=== PATIENT | male | born 1975 | race Caucasian/White ===

== ENCOUNTER 2016-07-17 08:42 | Day surgery (SDC) | payer OTHER ==
[~2016-07-17 08:42] MED LIST: Lactated Ringers 1,000 ML IV SCH; ceFAZolin 2 GM in Premix Bag 1 BAG IV ONE
[2016-07-17] MEDS ORDERED: Propofol 200 MG/20 ML SDV ONE ×2 (09:41→11:34)
[2016-07-17] MEDS ORDERED: Lidocaine 2% 5 ML SDV ONE (09:41)
[2016-07-17] MEDS ORDERED: Ondansetron 4 MG/2 ML SDV ONE (09:42)
[2016-07-17] MEDS ORDERED: Midazolam 1 MG/ML 2 ML SDV ONE (09:42)
[2016-07-17] MEDS ORDERED: Ketorolac 30 MG/ML SDV ONE (09:42)
[2016-07-17] MEDS ORDERED: fentaNYL 250 MCG/5 ML SDV ONE (09:42)
--- NOTE | 2016-07-17 10:05 | PCM.PREANE ---
Preanesthetic Assessment - Procedure Proposed Procedure: Left foot endoscopic plantat fasciotomy - Anesthesia/Transfusion/Family Hx Anesthesia History: Prior Anesthesia Without Reaction Family History of Anesthesia Reaction: No Transfusion History: No Prior Transfusion(s) Intubation History: Unknown - Review of Systems General: Other ( eczema and psoriasis) Pulmonary: No Symptoms Cardiovascular: No Symptoms Gastrointestinal: Other (GERD, Celiac disease, IBS) Other: Reports: None - Physical Assessment NPO Status Date: 07/16/16 NPO Status Time: 23:00 O2 Sat by Pulse Oximetry: 95 Respiratory Rate: 16 Vital Signs: Last Vital Signs Temp 98.1 F 07/17/16 08:51 Pulse 70 07/17/16 08:51 Resp 16 07/17/16 08:51 BP 122/73 07/17/16 08:51 Pulse Ox 95 07/17/16 08:51 Height: 5 ft 9 in Weight: 259 lb ASA Class: 2 Mental Status: Alert & Oriented x3 Airway Class: Mallampati = 1 Dentition: Reports: Normal Dentition Thyro-Mental Finger Breadths: 3 Mouth Opening Finger Breadths: 3 ROM/Head Extension: Full Lungs: Clear to auscultation, Normal respiratory effort Cardiovascular: Regular Rate, Regular Rhythm, No Murmurs - Allergies Allergies/Adverse Reactions: Allergies Allergy/AdvReac Type Severity Reaction Status Date / Time gluten Allergy Other Verified 06/02/15 08:37 - Blood Blood Available: No Product(s) Available: None - Anesthesia Plan Free Text/Narrative:: present for interview and exam. - Acknowledgements Anesthesia Type Planned: General Anesthesia (LMA) Pt an Appropriate Candidate for the Planned Anesthesia: Yes Alternatives and Risks of Anesthesia Discussed w Pt/Guardian: Yes Pt/Guardian Understands and Agrees with Anesthesia Plan: Yes PreAnesthesia Questionnaire HEENT History: Reports: None Cardiovascular History: Reports: Other (See Below) Other Cardiovascular History: had chest pain 4+ years ago, had testing done, no pathology found Respiratory History: Reports: None Gastrointestinal History: Reports: Celiac Disease, Chronic Constipation, GERD, Irritable Bowel Syndrome Other Gastrointestinal History: Celiac disease Genitourinary History: Reports: None Musculoskeletal History: Reports: Fracture Other Musculoskeletal History: hx of fx left elbow, has decreased movement in it Neurological History: Reports: None Psychiatric History: Reports: Bipolar Other Psychiatric History: does not take any meds Endocrine/Metabolic History: Reports: Obesity/BMI 30+ Hematologic History: Reports: None Immunologic History: Reports: None Oncologic (Cancer) History: Reports: None Dermatologic History: Reports: Eczema, Psoriasis - Past Surgical History Head Surgeries/Procedures: Reports: None HEENT Surgical History: Reports: None Cardiovascular Surgical History: Reports: None GI Surgical History: Reports: Colonoscopy, EGD, Hernia, Abdominal Male Surgical History: Reports: Vasectomy Endocrine Surgical History: Reports: None Neurological Surgical History: Reports: None Musculoskeletal Surgical History: Reports: None Oncologic Surgical History: Reports: None Dermatological Surgical History: Reports: None - SUBSTANCE USE Smoking Status *Q: Never Smoker Second Hand Smoke Exposure: No Days Per Week of Alcohol Use: 0 Recreational Drug Use History: No - HOME MEDS Home Medications: Home Meds . [No Known Home Meds] 07/14/16 [History] - CURRENT (IN HOUSE) MEDS Current Meds: Current Medications Lactated Ringer's (Ringers, Lactated) 1,000 mls @ 125 mls/hr IV ASDIRECTED KENNEY Last Admin: 07/17/16 09:05 Dose: 125 mls/hr Discontinued Medications Fentanyl (Sublimaze) Confirm Administered Dose 250 mcg .ROUTE .STK-MED ONE Stop: 07/17/16 09:43 Cefazolin Sodium/Dextrose 2 gm (/ Premix) 50 mls @ 100 mls/hr IV ONETIME ONE Stop: 07/16/16 21:42 Ketorolac Tromethamine (Toradol) Confirm Administered Dose 30 mg .ROUTE .STK- MED ONE Stop: 07/17/16 09:43 Lidocaine (Xylocaine-Mpf 2%) Confirm Administered Dose 10 ml .ROUTE .STK-MED ONE Stop: 07/17/16 09:42 Midazolam HCl (Versed 1 Mg/Ml) Confirm Administered Dose 2 mg .ROUTE .STK-MED ONE Stop: 07/17/16 09:43 Ondansetron HCl (Zofran) Confirm Administered Dose 4 mg .ROUTE .STK-MED ONE Stop: 07/17/16 09:43 Propofol (Diprivan 20 Ml) Confirm Administered Dose 400 mg .ROUTE .STK-MED ONE Stop: 07/17/16 09:42
[2016-07-17] MEDS ORDERED: Lidocaine 1% 50 ML MDV ONE (10:35)
[2016-07-17] MEDS ORDERED: Bupivacaine 0.5% 10 ML SDV ONE (10:35)
[2016-07-17] MEDS ORDERED: HYDROmorphone 2 MG/ML Syringe ONE (10:58)
[2016-07-17] MEDS ORDERED: fentaNYL 100 MCG/2 ML SDV IVPUSH PRN (11:16)
--- NOTE | 2016-07-17 12:27 | PCM.OPNOTE ---
- General Post-Op/Procedure Note Date of Surgery/Procedure: 07/17/16 Operative Procedure(s): endoscopic plantar fasciotomy left foot Findings: consistent with diagnosis Pre Op Diagnosis: plantar fasciitis left foot Anesthesia Technique: General LMA Primary Surgeon: Kareem Raman Anesthesia Provider: Joshua Clements Pathology: none EBL in mLs: 3 Condition: Good Free Text/Narrative:: 4-0 prolene
--- NOTE | 2016-07-17 12:59 | PCM.POSTAN ---
POST ANESTHESIA ASSESSMENT - MENTAL STATUS Mental Status: alert (to Phase II in good condition, without complaint.), oriented - RESPIRATORY Respiratory Status: respiratory rate WNL, airway patent, O2 saturation stable - CARDIOVASCULAR CV Status: pulse rate WNL, blood pressure stable - GASTROINTESTINAL GI Status: no symptoms - POST OP HYDRATION Hydration Status: adequate & stable
[2016-07-17 13:36] VITALS: BP 115/65
--- NOTE | 2016-07-18 02:47 | OR ---
SURGEON: Kareem Raman DPM DATE OF PROCEDURE: 07/17/2016 IDENTIFICATION: The patient is a 41-year-old male. PREOPERATIVE DIAGNOSIS: Plantar fasciitis, left foot. OPERATIVE PROCEDURE: Endoscopic plantar fasciotomy, left foot. PATHOLOGY: None. ANESTHESIA: General. HEMOSTASIS: Pneumatic ankle tourniquet which was set at 250 mmHg on the left ankle after an Esmarch bandage exsanguination. ESTIMATED BLOOD LOSS: 3 mL. MATERIALS: 4-0 Prolene. INJECTABLES: 1 mL of dexamethasone 4 mg/mL and 10 mL of 0.5% Marcaine plain. FINDINGS: Consistent with diagnosis. COMPLICATIONS: None seen. CONDITION: The patient tolerated the procedure and anesthesia well with all vital signs stable and neurovascular status intact to all digits of the left foot. JUSTIFICATION FOR THE PROCEDURE: The patient has tried and failed conservative measures including stretching and steroid injection and prior use of custom-made orthotics from another provider. Nothing has satisfactory alleviated his pain due to his plantar fasciitis of the left foot. The patient elected for surgical treatment and consented for endoscopic plantar fasciotomy of the left foot. No guarantees given or implied. PROCEDURE IN DETAIL: Endoscopic plantar fasciotomy, left foot. Following inflation of the tourniquet, attention was directed to the medial aspect of the left heel and using the site that was marked after prior palpation of the medial calcaneal tubercle, a stab incision was made with a 15 blade approximately 3 mm distal to the medial calcaneal tubercle and 17 mm superior to the plantar skin line of the foot. The incision was deepened using blunt dissection using a small curved mosquito hemostat and this facilitated the insertion of the plantar fascia elevator which was then utilized to palpate the plantar fascia superiorly and also the medial edge of the plantar fascia and then to separate the fascial planes with the plantar fascia superior to the elevator. The elevator was advanced from medial to lateral until the skin was tented on the lateral side and then it was withdrawn and an obturator was inserted following the same path as the plantar fascia elevator had taken. The skin was tented by the obturator from inside-out and stab incision was made on the lateral side at the location of the obturator. The obturator was then withdrawn. A cannula which was slotted was placed over the obturator and then the obturator and cannula were together placed through medial incision site across the plantar aspect of the foot exiting the lateral incision site through the stab incision that had just been made. The slotted cannula was rotated so that it was pacing in a superior direction which placed it on the inferior side of the plantar fascia band. Cotton tip applicators were passed from medial to lateral to clear any debris that had entered the cannula and then a 4 mm 30 degree scope was inserted from the medial side of the cannula and the bands of the plantar fascial were visualized. A hook knife was inserted with the hook facing inferiorly into the cannula from the lateral side and advanced medially until it was visualized on the monitor, able to hook the medial edge of the plantar fascia. The hook knife was then rotated so that it would hook the underside of plantar fascia and was pulled several times from medial to lateral stopping at the designated marker within the slotted cannula to cut the medial 1/3rd of the plantar fascia band. The hook knife was then rotated down again to protect inadvertent resection and removed from the cannula. [place] knife was then inserted also facing inferiorly and then rotated superiorly once it was in position on the medial aspect and further cutting of the plantar fascia was achieved in this way again stopping at the designated marker to limit the resection to approximately 1/3rd of the fascial band. After this was removed, the hook knife was used once again in a similar fashion to ensure that the desired portion of the plantar fascia had been fully cut. Care was taken not to exceed the designated marker on the slotted cannula. The cannula was held in place and in a proper position during the procedure. The underlying muscle belly was noted to protrude through the site when the fibers were released off the plantar fascia. The instruments were then removed including the cannula obturator combination and both the medial and lateral sides were flushed with normal sterile saline and dabbed dry. Following this, 1 mL of dexamethasone 4 mg/mL strain was injected through the medial incision. Following this, 10 mL of 0.5% Marcaine plain was injected with half being injected through the medial incision and half through the lateral incision. At that time, the skin on both sides was reapproximated using 4-0 Prolene suture. Both sites were then covered with Betadine-soaked Xeroform gauze followed by sterile compressive dressing consisting of 4 x 4 gauze, Kerlix roll, and secured with an Sukumar bandage. The pneumatic ankle tourniquet was then deflated and a prompt hyperemic response was noted to all digits of the left foot. The patient tolerated the procedure and anesthesia well, was transferred to the recovery room for a period of monitoring. The patient was discharged home with written and oral postoperative instructions including partial weightbearing in a postoperative shoe which has been affixed in the recovery room and prescription for Goree for pain management. The patient is to contact me with any concerns at any time and has my cellphone number and the patient is to call the office to schedule a followup appointment in approximately 12-14 days. MARTA SOL /[id number] JUSTIN
--- NOTE | 2016-07-18 06:09 | PN ---
DATE OF SURGERY: July 17, 2016. TIME: Approximately 10:45 a.m. PREOPERATIVE DIAGNOSIS: Plantar fasciitis, left foot. PLANNED PROCEDURE: Endoscopic plantar fasciotomy, left foot. Consent is signed and in the chart. ANESTHESIA: General. The patient confirms n.p.o. since midnight. History and physical completed by Dr. Concepcion with no contraindications noted to surgery. PAST MEDICAL HISTORY: ALLERGIES: No known allergies. MEDICATIONS: No current medications, although he does take vitamins supplements. No current illnesses. LABORATORY DATA: Urinalysis is unremarkable. Hemoglobin 16.0, hematocrit 45.6, red blood cells 5.26, white blood cell count is 7.70, INR 1.04, PTT 28.0. Sodium 140, potassium 4.3, chloride 106, CO2 is 25, BUN is 16, creatinine 1.0, and calcium 9.4, glucose 89. Chest x-ray showed no acute cardiopulmonary process and EKG shows normal sinus rhythm. The patient presents for endoscopic plantar fasciotomy surgery today. No guarantees given or implied. MARTA SOL /[id number]
== END 2016-07-17 13:19 | disposition home or self-care (01) ==
LOC: MW.SDS 08:42
PROVIDERS: ATTEND Podiatrist Foot & Ankle Surgery
DX: M72.2 Plantar fascial fibromatosis (principal); K21.9 Gastro-esophageal reflux disease without esophagitis; K58.9 Irritable bowel syndrome, unspecified; K59.09 Other constipation; F31.9 Bipolar disorder, unspecified; L40.9 Psoriasis, unspecified; E66.9 Obesity, unspecified; Z98.52 Vasectomy status; Z98.890 Other specified postprocedural states; Z82.49 Family history of ischemic heart disease and other diseases of the circulatory system; Z80.0 Family history of malignant neoplasm of digestive organs; Z83.49 Family history of other endocrine, nutritional and metabolic diseases; Z88.8 Allergy status to other drugs, medicaments and biological substances; Z68.30 Body mass index [BMI] 30.0-30.9, adult; Z79.899 Other long term (current) drug therapy
CPT/HCPCS: 29893; J1170; J1885; J2250; J2405; J3010; J7120; 01470; J2704

== ENCOUNTER 2020-10-19 14:50 | Emergency (ER) | payer OTHER ==
[2020-10-19] MEDS ORDERED: Diphtheria,Pertussis(Acell),Tetanus Vaccine 0.5 ML Syringe IM ONE (15:02)
[2020-10-19] MEDS ORDERED: Lidocaine 1% 10 ML MDV INJECT ONE (15:02)
[2020-10-19] MEDS ORDERED: Mupirocin Oint 22 GM Tube TOP ONE (16:18)
--- NOTE | 2020-10-19 16:24 | EDM.PDOC ---
ED HPI GENERAL MEDICAL PROBLEM - General Chief Complaint: Laceration Stated Complaint: FELL OFF LADDER SPLIT CHIN OPEN Time Seen by Provider: 10/19/20 14:55 Source of Information: Reports: Patient History Limitations: Reports: No Limitations - History of Present Illness INITIAL COMMENTS - FREE TEXT/NARRATIVE: HISTORY AND PHYSICAL: History of present illness: The patient is a 45-year-old male who presented to the emergency department with a chin laceration after missing the wrong on his ladder and striking his chin on the edge of the ladder rails. The patient denies any LOC. The patient states that he did not hit his head anywhere else but his chin. The patient's stated that it was witnessed and the patient did not have any LOC. The patient did not do anything for the laceration but came straight to the emergency department. The patient did get his right thumb caught between the rails of the ladder causing blood entrapment beneath the nail. The patient states the nail is throbbing. Patient denies any fever, chills, headache, change in vision, syncope or near syncope. Denies any chest pain, back pain, shortness of breath or cough. Denies any abdominal pain, nausea, vomiting, diarrhea, constipation or dysuria. Has not noted any blood in urine or stool. Patient has been eating and drinking appropriately. Review of systems: As per history of present illness and below otherwise all systems reviewed and negative. Past medical history: As per history of present illness and as reviewed below otherwise noncontributory. Surgical history: As per history of present illness and as reviewed below otherwise noncontributory. Social history: See social history for further information Family history: As per history of present illness and as reviewed below otherwise noncontributory. Physical exam: General: Well developed and well nourished. Alert and orientated x 3. Nontoxic in appearance and in no acute distress. Vital signs are stable and have been reviewed by me. Nursing notes were reviewed. HEENT: Atraumatic, normocephalic, pupils equal and reactive bilaterally, negative for conjunctival pallor or scleral icterus, mucous membranes moist, TMs normal bilaterally, throat clear, neck supple, nontender, trachea midline. No drooling or trismus noted. No meningeal signs. No hot potato voice noted. Lungs: Clear to auscultation bilaterally. No wheezes, rales, or rhonchi. Chest nontender. Normal work of breathing, no accessory muscles used. Heart: S1S2, regular rate and rhythm without overt murmur, gallops, or rubs. No JVD. No peripheral edema Abdomen: Soft, nondistended, nontender. Normoactive bowel sounds. Negative for masses or costovertebral tenderness. Skin: 10 cm linear laceration to chin. Minimal bleeding. Sensation intact. Warm & dry. No lesions or rashes noted. Hematologic: No petechiae or purpra. Mucosa appropriate color and normal nail bed color and refill. Extremities: Right first digit with subungual hematoma 40%. Moves all extremities per self without difficulty or deficits, negative for cords or calf pain. Neurovascular unremarkable. Neuro: Awake, alert, oriented. Cranial nerves II through XII unremarkable. Cerebellum unremarkable. Motor and sensory unremarkable throughout. Exam nonfocal. Psychiatric: Mood and affect are appropriate. Normal thought process. Answering questions appropriately. Notes: *This patient was seen and evaluated during the 2019 SARS-CoV-2 novel coronavirus pandemic period. Community viral transmission is ongoing at time of this encounter and the emergency department is operating under pandemic response procedures. As stated above the patient is a 45-year-old male presents to the emergency with chin laceration after striking his chin on a rail off a ladder. The patient is unsure of his tetanus vaccination status so I have ordered a tetanus. See laceration procedure. The patient tolerated well. The patient was given Toradol 60 mg IM for pain control. I have ordered a thumb x-ray to rule out fracture. The patient's first digit subungual hematoma was treated with nail trephination. The patient was advised of the painless nature of the procedure and the smell of burning nail and verbalized understanding. The patient right first digit was chlorhexidine and allowed to completely dry. Hand-held cautery was used to burn nail until blood was present. Patient had immediate relief and tolerated the procedure well. A thumb dressing was applied with instructions at the blood could see for over 24 hours. Bacitracin ointment was applied to the patient's chin. Patient was instructed to have the sutures removed in 7 to 10 days. The patient's thumb x-ray IMPRESSION: Questionable nondisplaced fracture off the tip of the tuft of the left thumb is identified. The joint spaces are preserved. I have ordered Keflex 500 mg every 8 hours by mouth for 7 days. Patient was leaving the emergency department to go to an emergent dentist appointment for possible chipped tooth when I found out the x-ray results. I have verbally told the patient of the results and of the K flex transmitted to the pharmacy. The patient and his verbalized understanding. I have talked with the patient about today's findings, in addition to providing specific details for plan of care. Reassessment at the time of disposition demonstrates that the patient is in no acute distress. The patient is stable for discharge, counseling was provided and we discussed in great detail signs and symptoms that would prompt them to return to the Emergency Department. Medication, follow up and supportive care measures were reviewed and discussed. Voices understanding and is agreeable to plan of care. Denies any further questions or concerns at this time. Diagnostics: Thumb x-ray Therapeutics: Lidocaine 1%, Toradol 60 mg IM Prescription: Keflex 500 mg by mouth every 8 hours for 7 days Impression: Duration, subungual hematoma, tuft fracture right thumb Plan: 1. You were evaluated today on an emergent basis. Your chin laceration was evaluated and treated with 10 sutures. Your right thumb was relieved of the pressure with a cautery pen. If you have increased pain or redness please return to the emergency department 2. You can alternate Tylenol and ibuprofen as needed for pain and fever management. 3. We encourage you to follow up with your primary care provider and/or recommended specialist in the next few days for re-evaluation and further care/management. 4. If your symptoms should worsen, new symptoms develop or any of the signs and symptoms we discussed should arise please return to the emergency room or call 911 (if needed). 5. Keep the area clean and dry. Continue to monitor for signs of infection. Sutures to be removed in 7-10 days. Definitive disposition and diagnosis as appropriate pending reevaluation and review of above. - Related Data Allergies Allergy/AdvReac Type Severity Reaction Status Date / Time gluten Allergy Other Verified 10/19/20 14:58 Home Meds: Home Meds cephALEXin [Keflex] 500 mg PO Q8H 7 Days #21 cap 10/19/20 [Rx] Past Medical History HEENT History: Reports: None Cardiovascular History: Reports: Other (See Below) Other Cardiovascular History: had chest pain 4+ years ago, had testing done, no pathology found Respiratory History: Reports: None Gastrointestinal History: Reports: Celiac Disease, Chronic Constipation, GERD, Irritable Bowel Syndrome Other Gastrointestinal History: Celiac disease Genitourinary History: Reports: None Musculoskeletal History: Reports: Fracture Other Musculoskeletal History: hx of fx left elbow, has decreased movement in it Neurological History: Reports: None Psychiatric History: Reports: Bipolar Other Psychiatric History: does not take any meds Endocrine/Metabolic History: Reports: Obesity/BMI 30+, Other (See Below) Other Endocrine/Metabolic History: celiac disease Hematologic History: Reports: None Immunologic History: Reports: None Oncologic (Cancer) History: Reports: None Dermatologic History: Reports: Eczema, Psoriasis - Infectious Disease History Infectious Disease History: Reports: Chicken Pox - Past Surgical History Head Surgeries/Procedures: Reports: None HEENT Surgical History: Reports: None Cardiovascular Surgical History: Reports: None GI Surgical History: Reports: Colonoscopy, EGD, Hernia, Abdominal Male Surgical History: Reports: Vasectomy Endocrine Surgical History: Reports: None Neurological Surgical History: Reports: None Musculoskeletal Surgical History: Reports: None Oncologic Surgical History: Reports: None Dermatological Surgical History: Reports: None Social & Family History - Family History Family Medical History: No Pertinent Family History Respiratory: Reports: Other (See Below) Other Respiratory Family Hisory: pneumonia family - Tobacco Use Tobacco Use Status *Q: Never Tobacco User - Caffeine Use Caffeine Use: Reports: Energy Drinks - Recreational Drug Use Recreational Drug Use: No ED ROS GENERAL - Review of Systems Review Of Systems: Comprehensive ROS is negative, except as noted in HPI. ED EXAM, SKIN/RASH Exam: See Below (See dictation) Course - Vital Signs Last Recorded V/S: Last Vital Signs Temp 97.5 F 10/19/20 16:51 Pulse 97 10/19/20 16:51 Resp 18 10/19/20 16:51 BP 122/85 10/19/20 16:51 Pulse Ox 98 10/19/20 16:51 - Orders/Labs/Meds Meds: Medications Discontinued Medications Generic Name Dose Route Start Last Admin Trade Name Freq PRN Reason Stop Dose Admin Bacitracin 1 dose 10/19/20 16:33 10/19/20 16:35 Bacitracin Oint 1 Gm U/D Packet TOP 10/19/20 16:34 1 dose ONETIME ONE Administration Diphtheria/Tetanus/Acell Pertussis 0.5 ml 10/19/20 15:02 10/19/20 15:08 Diphtheria,Pertussis(Acell),Tetanus Vaccine 0.5 Ml Syringe IM 10/19/20 15:03 0.5 ml .ONCE ONE Administration Ketorolac Tromethamine 60 mg 10/19/20 16:25 10/19/20 16:35 Ketorolac 60 Mg/2 Ml Sdv IM 10/19/20 16:26 60 mg ONETIME ONE Administration Lidocaine HCl 10 ml 10/19/20 15:02 10/19/20 15:46 Lidocaine 1% 10 Ml Mdv INJECT 10/19/20 15:03 Not Given ONETIME ONE Lidocaine HCl 10 ml 10/19/20 15:25 10/19/20 15:46 Lidocaine 1% 5 Ml Sdv INJECT 10/19/20 15:26 10 ml ONETIME ONE Administration Mupirocin 1 gm 10/19/20 16:18 10/19/20 16:36 Mupirocin Oint 22 Gm Tube TOP 10/19/20 16:19 Not Given ONETIME ONE Departure - Departure Time of Disposition: 16:49 Disposition: Home, Self-Care 01 Condition: Good Clinical Impression: Laceration, Open fracture of tuft of distal phalanx of finger Subungual hematoma of right thumb Qualifiers: Encounter type: initial encounter Qualified Code(s): S60.111A - Contusion of right thumb with damage to nail, initial encounter - Discharge Information *PRESCRIPTION DRUG MONITORING PROGRAM REVIEWED*: Not Applicable *COPY OF PRESCRIPTION DRUG MONITORING REPORT IN PATIENT DAVE: Not Applicable Prescriptions: cephALEXin [Keflex] 500 mg PO Q8H 7 Days #21 cap Instructions: Laceration Care, Adult Referrals: PCP,None [Primary Care Provider] - Forms: ED Department Discharge Additional Instructions: The following information is given to patients seen in the emergency department who are being discharged to home. This information is to outline your options for follow-up care. We provide all patients seen in our emergency department with a follow-up referral. The need for follow-up, as well as the timing and circumstances, are variable depending upon the specifics of your emergency department visit. If you don't have a primary care physician on staff, we will provide you with a referral. We always advise you to contact your personal physician following an emergency department visit to inform them of the circumstance of the visit and for follow-up with them and/or the need for any referrals to a consulting specialist. The emergency department will also refer you to a specialist when appropriate. This referral assures that you have the opportunity for follow-up care with a specialist. All of these measure are taken in an effort to provide you with optimal care, which includes your follow-up. Under all circumstances we always encourage you to contact your private physician who remains a resource for coordinating your care. When calling for follow-up care, please make the office aware that this follow-up is from your recent emergency room visit. If for any reason you are refused follow-up, please contact the [facility] Emergency Department at and asked to speak to the emergency department charge nurse. [facility] [address] [place] [id number] [address] Plan: 1. You were evaluated today on an emergent basis. Your chin laceration was evaluated and treated with 10 sutures. Your right thumb was relieved of the pressure with a cautery pen. If you have increased pain or redness please return to the emergency department 2. You can alternate Tylenol and ibuprofen as needed for pain and fever management. 3. We encourage you to follow up with your primary care provider and/or recommended specialist in the next few days for re-evaluation and further care/management. 4. If your symptoms should worsen, new symptoms develop or any of the signs and symptoms we discussed should arise please return to the emergency room or call [phone] (if needed). 5. Keep the area clean and dry. Continue to monitor for signs of infection. Sutures to be removed in 7-10 days. Sepsis Event Note (ED) - Evaluation Sepsis Screening Result: No Definite Risk
[2020-10-19] MEDS ORDERED: Ketorolac 60 MG/2 ML SDV IM ONE (16:25)
[2020-10-19] MEDS ORDERED: Bacitracin Oint 1 GM U/D Packet TOP ONE (16:33)
--- NOTE | 2020-10-19 16:48 | CR ---
INDICATION: Left thumb pain and injury. TECHNIQUE: Three view. FINDINGS: There is a questionable nondisplaced fracture of the tip of the tuft of the left thumb. The joint spaces are preserved. IMPRESSION: Questionable nondisplaced fracture off the tip of the tuft of the left thumb is identified. The joint spaces are preserved. Dictated by Fransisco Bowman MD @ 10/19/2020 4:47:36 PM (Electronically Signed)
[2020-10-19 16:52] VITALS: BP 122/85; PULSE 97
== END 2020-10-19 16:55 | disposition home or self-care (01) ==
LOC: MW.ED 14:50
DX: S62.521B Displaced fracture of distal phalanx of right thumb, initial encounter for open fracture (principal); S01.81XA Laceration without foreign body of other part of head, initial encounter; E66.9 Obesity, unspecified; Z91.018 Allergy to other foods; Z68.30 Body mass index [BMI] 30.0-30.9, adult; Z23 Encounter for immunization; W11.XXXA Fall on and from ladder, initial encounter
CPT/HCPCS: 11740; 12015; 73140; 90471; 90715; 96372; 99283; J1885

== ENCOUNTER 2020-12-18 10:48 | Inpatient (IN) | payer OTHER ==
--- NOTE | 2020-12-18 11:13 | EDM.PDOC ---
ED HPI GENERAL MEDICAL PROBLEM - General Chief Complaint: Respiratory Problem Stated Complaint: COV POS/ FATIGUE Time Seen by Provider: 12/18/20 10:59 - History of Present Illness INITIAL COMMENTS - FREE TEXT/NARRATIVE: 45-year-old male presents complaining of fatigue and shortness of breath. Patient positive for Covid. Cough started about 6 days ago. Patient did test positive. Everyone in the house also sick. Patient without history of immunosuppression or diabetes or asthma or COPD or respiratory illnesses. No exacerbating or alleviating factors - Related Data Allergies Allergy/AdvReac Type Severity Reaction Status Date / Time gluten Allergy Other Verified 12/18/20 10:55 Home Meds: Home Meds . [No Known Home Meds] 12/18/20 [History] Past Medical History HEENT History: Reports: None Cardiovascular History: Reports: None Other Cardiovascular History: had chest pain 4+ years ago, had testing done, no pathology found Respiratory History: Reports: None Gastrointestinal History: Reports: Celiac Disease, Chronic Constipation, GERD, Irritable Bowel Syndrome Other Gastrointestinal History: Celiac disease Genitourinary History: Reports: None Musculoskeletal History: Reports: Fracture Other Musculoskeletal History: hx of fx left elbow, has decreased movement in it Neurological History: Reports: None Psychiatric History: Reports: Bipolar Other Psychiatric History: does not take any meds Endocrine/Metabolic History: Reports: Obesity/BMI 30+, Other (See Below) Other Endocrine/Metabolic History: celiac disease Hematologic History: Reports: None Immunologic History: Reports: None Oncologic (Cancer) History: Reports: None Dermatologic History: Reports: Eczema, Psoriasis - Infectious Disease History Infectious Disease History: Reports: Chicken Pox - Past Surgical History Head Surgeries/Procedures: Reports: None HEENT Surgical History: Reports: None Cardiovascular Surgical History: Reports: None GI Surgical History: Reports: Colonoscopy, EGD, Hernia, Abdominal Male Surgical History: Reports: Vasectomy Endocrine Surgical History: Reports: None Neurological Surgical History: Reports: None Musculoskeletal Surgical History: Reports: None Oncologic Surgical History: Reports: None Dermatological Surgical History: Reports: None Social & Family History - Family History Family Medical History: No Pertinent Family History Respiratory: Reports: Other (See Below) Other Respiratory Family Hisory: pneumonia family - Tobacco Use Tobacco Use Status *Q: Never Tobacco User - Caffeine Use Caffeine Use: Reports: Coffee, Energy Drinks - Recreational Drug Use Recreational Drug Use: No ED ROS GENERAL - Review of Systems Review Of Systems: Comprehensive ROS is negative, except as noted in HPI. Constitutional: Reports: Fever Respiratory: Reports: Shortness of Breath, Cough GI/Abdominal: Reports: Diarrhea Skin: Reports: No Symptoms ED EXAM, GENERAL - Physical Exam Exam: See Below Free Text/Narrative:: CONSTITUTIONAL: well appearing in no acute distress SKIN: Warm, dry, and intact without rash HENT: Normocephalic, atraumatic, PULMONARY: No tachypnea. Bilateral rales. No retractions CARDIOVASCULAR: regular rate, No murmur, rubs, or gallops GASTROINTESTINAL: soft, nondistended, nontender NEUROLOGIC: normal speech, sensorimotor function intact MUSCULOSKELETAL: no gross deformities, atraumatic PSYCHIATRIC: normal mood and affect #1 Interpretation Time: 11:11 EKG Interpretation Comments: EKG: NSR, nonspecific ST/T changes, Rate -82 Course - Vital Signs Text/Narrative:: Differential diagnosis: Bacterial pneumonia, Covid pneumonia, CHF, other viral illness, COPD, PE, other Patient presents with shortness of breath and weakness in the setting of Covid. Patient has interstitial infiltrates on chest x-ray consistent with viral pneumonia from Covid. Patient is ambulatory O2 sat 85% on room air at its lowest. Patient is weak and nurse had to even bring a chair to ensure that the patient did not fall. The remainder of the work-up is effectively unremarkable. Patient received oxygen steroids and remdesivir and will be admitted for continued treatment and management Last Recorded V/S: Last Vital Signs Temp 38.4 C H 12/18/20 10:55 Pulse 90 12/18/20 10:55 Resp 16 12/18/20 10:55 BP 115/68 12/18/20 10:55 Pulse Ox 89 L 12/18/20 10:55 - Orders/Labs/Meds Orders: Active Orders 24 hr Category Date Time Status Admission Status [Patient Status] [ADT] Stat ADT 12/18/20 13:07 Ordered Cardiac Monitoring [RC] . DIRECTED Care 12/18/20 13:07 Ordered Oxygen Therapy Adult [Oxygen Therapy, ED] [RC] Care 12/18/20 12:39 Active ASDIRECTED Pulse Oximetry [RC] ASDIRECTED Care 12/18/20 11:14 Active BILIRUBIN DIRECT [CHEM] DAILY Lab 12/19/20 12:45 Ordered BILIRUBIN DIRECT [CHEM] DAILY Lab 12/20/20 12:45 Ordered BILIRUBIN DIRECT [CHEM] DAILY Lab 12/21/20 12:45 Ordered BILIRUBIN DIRECT [CHEM] DAILY Lab 12/22/20 12:45 Ordered COMPREHENSIVE METABOLIC PN,CMP [CHEM] DAILY Lab 12/19/20 12:45 Ordered COMPREHENSIVE METABOLIC PN,CMP [CHEM] DAILY Lab 12/20/20 12:45 Ordered COMPREHENSIVE METABOLIC PN,CMP [CHEM] DAILY Lab 12/21/20 12:45 Ordered COMPREHENSIVE METABOLIC PN,CMP [CHEM] DAILY Lab 12/22/20 12:45 Ordered FERRITIN [CHEM] Stat Lab 12/18/20 12:17 Received Remdesivir 200 mg Med 12/18/20 13:00 Active Sodium Chloride 0.9% [Normal Saline] 250 ml IV ONETIME Medication Orders Remdesivir 200 mg/ Sodium (Chloride) 250 mls @ 250 mls/hr IV ONETIME ONE Stop: 12/18/20 13:59 Labs: Laboratory Tests 12/18/20 12/18/20 Range/Units 12:17 12:17 WBC 3.49 L (4.0-11.0) K/uL RBC 5.11 (4.50-5.90) M/uL Hgb 15.9 (13.0-17.0) g/dL Hct 45.2 (38.0-50.0) % MCV 88.5 (80.0-98.0) fL MCH 31.1 (27.0-32.0) pg MCHC 35.2 (31.0-37.0) g/dL RDW Std Deviation 43.4 (28.0-62.0) fl RDW Coeff of Lena 13 (11.0-15.0) % Plt Count 134 L (150-400) K/uL MPV 9.40 (7.40-12.00) fL Neut % (Auto) 72.8 (48.0-80.0) % Lymph % (Auto) 16.9 (16.0-40.0) % [place] % (Auto) 10.3 (0.0-15.0) % Eos % (Auto) 0.0 (0.0-7.0) % Baso % (Auto) 0.0 (0.0-1.5) % Neut # (Auto) 2.5 (1.4-5.7) K/uL Lymph # (Auto) 0.6 (0.6-2.4) K/uL [place] # (Auto) 0.4 (0.0-0.8) K/uL Eos # (Auto) 0.0 (0.0-0.7) K/uL Baso # (Auto) 0.0 (0.0-0.1) K/uL Nucleated RBC % 0.0 /100WBC Nucleated RBCs # 0 K/uL Sodium 134 L (136-148) mmol/L Potassium 4.4 (3.5-5.1) mmol/L Chloride 97 L (98-107) mmol/L Carbon Dioxide 30.6 (21.0-32.0) mmol/L BUN 15 (7.0-18.0) mg/dL Creatinine 1.2 (0.8-1.3) mg/dL Est Cr Clr Drug Dosing 78.56 mL/min Estimated GFR (MDRD) > 60.0 ml/min Glucose 111 H (74-106) mg/dL Calcium 8.3 L (8.5-10.1) mg/dL Total Bilirubin 0.9 (0.2-1.0) mg/dL AST 48 H (15-37) IU/L ALT 40 (14-63) IU/L Alkaline Phosphatase 58 (46-116) U/L C-Reactive Protein 3.40 H (0.00-0.90) mg/dL Total Protein 6.9 (6.4-8.2) g/dL Albumin 3.3 L (3.4-5.0) g/dL Globulin 3.6 (2.6-4.0) g/dL Albumin/Globulin Ratio 0.9 (0.9-1.6) Meds: Medications Generic Name Dose Route Start Last Admin Trade Name Freq PRN Reason Stop Dose Admin Remdesivir 200 mg/ Sodium 250 mls @ 250 mls/hr 12/18/20 13:00 Chloride IV 12/18/20 13:59 ONETIME ONE Discontinued Medications Generic Name Dose Route Start Last Admin Trade Name Freq PRN Reason Stop Dose Admin Acetaminophen 1,000 mg 12/18/20 11:17 12/18/20 12:03 Acetaminophen 325 Mg Tab PO 12/18/20 11:18 975 mg NOW ONE Administration Acetaminophen 975 mg 12/18/20 12:04 12/18/20 12:19 Acetaminophen 325 Mg Tab PO 12/18/20 12:05 Not Given NOW ONE Dexamethasone 6 mg 12/18/20 12:37 Dexamethasone 4 Mg/Ml Sdv IVPUSH 12/18/20 12:38 ONETIME ONE Departure - Departure Time of Disposition: 13:10 Disposition: Refer to Observation Condition: Good Clinical Impression: COVID, Hypoxia - Discharge Information Referrals: PCP,None [Primary Care Provider] - Forms: ED Department Discharge Sepsis Event Note (ED) - Evaluation Sepsis Screening Result: No Definite Risk - Focused Exam Vital Signs: Vital Signs Temp Pulse Resp BP Pulse Ox 12/18/20 10:55 38.4 C H 90 16 115/68 89 L - My Orders Last 24 Hours: My Active Orders 12/18/20 11:14 Pulse Oximetry [RC] ASDIRECTED 12/18/20 12:17 FERRITIN [CHEM] Stat 12/18/20 12:39 Oxygen Therapy Adult [Oxygen Therapy, ED] [RC] ASDIRECTED 12/18/20 13:00 Remdesivir 200 mg Sodium Chloride 0.9% [Normal Saline] 250 ml IV ONETIME 12/18/20 13:07 Admission Status [Patient Status] [ADT] Stat Cardiac Monitoring [RC] . DIRECTED 12/19/20 12:45 BILIRUBIN DIRECT [CHEM] DAILY COMPREHENSIVE METABOLIC PN,CMP [CHEM] DAILY 12/20/20 12:45 BILIRUBIN DIRECT [CHEM] DAILY COMPREHENSIVE METABOLIC PN,CMP [CHEM] DAILY 12/21/20 12:45 BILIRUBIN DIRECT [CHEM] DAILY COMPREHENSIVE METABOLIC PN,CMP [CHEM] DAILY 12/22/20 12:45 BILIRUBIN DIRECT [CHEM] DAILY COMPREHENSIVE METABOLIC PN,CMP [CHEM] DAILY - Assessment/Plan Last 24 Hours: My Active Orders 12/18/20 11:14 Pulse Oximetry [RC] ASDIRECTED 12/18/20 12:17 FERRITIN [CHEM] Stat 12/18/20 12:39 Oxygen Therapy Adult [Oxygen Therapy, ED] [RC] ASDIRECTED 12/18/20 13:00 Remdesivir 200 mg Sodium Chloride 0.9% [Normal Saline] 250 ml IV ONETIME 12/18/20 13:07 Admission Status [Patient Status] [ADT] Stat Cardiac Monitoring [RC] . DIRECTED 12/19/20 12:45 BILIRUBIN DIRECT [CHEM] DAILY COMPREHENSIVE METABOLIC PN,CMP [CHEM] DAILY 12/20/20 12:45 BILIRUBIN DIRECT [CHEM] DAILY COMPREHENSIVE METABOLIC PN,CMP [CHEM] DAILY 12/21/20 12:45 BILIRUBIN DIRECT [CHEM] DAILY COMPREHENSIVE METABOLIC PN,CMP [CHEM] DAILY 12/22/20 12:45 BILIRUBIN DIRECT [CHEM] DAILY COMPREHENSIVE METABOLIC PN,CMP [CHEM] DAILY
[2020-12-18] MEDS ORDERED: Acetaminophen 325 MG Tab PO ONE ×2 (11:17→12:04)
--- NOTE | 2020-12-18 11:55 | CR ---
Indication: Chest pain Comparison: None available. Technique: Single AP view chest Findings: There is hyperinflation and chronic interstitial change. There are airspace opacities in the bilateral hemithoraces likely representing multifocal infiltrates and/or pulmonary edema. The cardiomediastinal silhouette is within normal limits. The bony thorax is grossly intact. Impression: Extensive interstitial and airspace opacities throughout the bilateral hemithoraces likely representing multifocal infiltrates such as can be seen in meredith virus pneumonia. Recommend follow-up with clinical testing. Dictated by Ever Dye MD @ 12/18/2020 11:54:44 AM (Electronically Signed)
[2020-12-18] MEDS ORDERED: Dexamethasone 4 MG/ML SDV IVPUSH ONE (12:37)
[2020-12-18] MEDS ORDERED: REMDESIVIR 200 MG in Sodium Chloride 0.9% 250 ML IV ONE ×2 (12:37→13:00)
[2020-12-18 12:53] LABS: BLOOD UREA NITROGEN,BUN 15 mg/dL (7.0-18.0); CARBON DIOXIDE,CO2 30.6 mmol/L (21.0-32.0); CHLORIDE,CL 97 mmol/L (98-107); GLUCOSE RANDOM 111 mg/dL (74-106); POTASSIUM,K 4.4 mmol/L (3.5-5.1); SODIUM,NA 134 mmol/L (136-148)
[2020-12-18] MEDS ORDERED: Benzonatate 100 MG Cap PO PRN (17:00)
[2020-12-18] MEDS: Enoxaparin 40 MG/0.4 ML Syringe SUBCUT SCH (17:33)
--- NOTE | 2020-12-18 17:34 | PCM.HP.2 ---
H&P History of Present Illness - General Date of Service: 12/18/20 Admit Problem/Dx: Admission Diagnosis/Problem Admission Diagnosis/Problem Viral pneumonia - History of Present Illness Initial Comments - Free Text/Narative: 45 yo male who presents with one week of shortness of breath, lightheadedness, cough and fevers. He is positive for COVID. He is requring 2 L NC to keep sats above 90%. CXR reports bilateral infiltrates. - Related Data Allergies/Adverse Reactions: Allergies Allergy/AdvReac Type Severity Reaction Status Date / Time gluten Allergy Other Verified 12/18/20 14:54 Home Medications: Home Meds . [No Known Home Meds] 12/18/20 [History] Past Medical History HEENT History: Reports: None Cardiovascular History: Reports: None Other Cardiovascular History: had chest pain 4+ years ago, had testing done, no pathology found Respiratory History: Reports: None Gastrointestinal History: Reports: Celiac Disease, Chronic Constipation, GERD, Irritable Bowel Syndrome Other Gastrointestinal History: Celiac disease Genitourinary History: Reports: None Musculoskeletal History: Reports: Fracture Other Musculoskeletal History: hx of fx right. elbow, has decreased movement in it Neurological History: Reports: None Psychiatric History: Reports: Bipolar Other Psychiatric History: does not take any meds Endocrine/Metabolic History: Reports: Obesity/BMI 30+, Other (See Below) Other Endocrine/Metabolic History: celiac disease Hematologic History: Reports: None Immunologic History: Reports: None Oncologic (Cancer) History: Reports: None Dermatologic History: Reports: Eczema, Psoriasis - Infectious Disease History Infectious Disease History: Reports: Chicken Pox - Past Surgical History Head Surgeries/Procedures: Reports: None HEENT Surgical History: Reports: None Cardiovascular Surgical History: Reports: None GI Surgical History: Reports: Colonoscopy, EGD, Hernia, Abdominal Male Surgical History: Reports: Vasectomy Endocrine Surgical History: Reports: None Neurological Surgical History: Reports: None Musculoskeletal Surgical History: Reports: None Oncologic Surgical History: Reports: None Dermatological Surgical History: Reports: None Social & Family History - Family History Family Medical History: No Pertinent Family History Respiratory: Reports: Other (See Below) Other Respiratory Family Hisory: pneumonia family - Tobacco Use Tobacco Use Status *Q: Never Tobacco User Second Hand Smoke Exposure: No - Caffeine Use Caffeine Use: Reports: Coffee, Energy Drinks Caffeine Use Comment: occ - Recreational Drug Use Recreational Drug Use: No H&P Review of Systems - Review of Systems: Review Of Systems: Comprehensive ROS is negative, except as noted in HPI. Exam - Exam Exam: See Below - Vital Signs Vital Signs: Last Vital Signs Temp 36.7 C 12/18/20 15:00 Pulse 79 12/18/20 15:00 Resp 18 12/18/20 15:00 BP 119/59 L 12/18/20 15:00 Pulse Ox 91 L 12/18/20 15:00 Weight: 115.212 kg - Exam General: Alert, Oriented HEENT: Mucosa Moist & [place] Neck: Supple Lungs: Normal Respiratory Effort, Rhonchi Cardiovascular: Regular Rate, Regular Rhythm GI/Abdominal Exam: Normal Bowel Sounds, Soft, Non-Tender, No Distention Extremities: Non-Tender, No Pedal Edema Skin: Warm, Dry, Intact - Patient Data Lab Results Last 24 hrs: Laboratory Results - last 24 hr 12/18/20 12/18/20 12/18/20 Range/Units 12:17 12:17 12:17 WBC 3.49 L (4.0-11.0) K/uL RBC 5.11 (4.50-5.90) M/uL Hgb 15.9 (13.0-17.0) g/dL Hct 45.2 (38.0-50.0) % MCV 88.5 (80.0-98.0) fL MCH 31.1 (27.0-32.0) pg MCHC 35.2 (31.0-37.0) g/dL RDW Std Deviation 43.4 (28.0-62.0) fl RDW Coeff of Lena 13 (11.0-15.0) % Plt Count 134 L (150-400) K/uL MPV 9.40 (7.40-12.00) fL Neut % (Auto) 72.8 (48.0-80.0) % Lymph % (Auto) 16.9 (16.0-40.0) % [place] % (Auto) 10.3 (0.0-15.0) % Eos % (Auto) 0.0 (0.0-7.0) % Baso % (Auto) 0.0 (0.0-1.5) % Neut # (Auto) 2.5 (1.4-5.7) K/uL Lymph # (Auto) 0.6 (0.6-2.4) K/uL [place] # (Auto) 0.4 (0.0-0.8) K/uL Eos # (Auto) 0.0 (0.0-0.7) K/uL Baso # (Auto) 0.0 (0.0-0.1) K/uL Nucleated RBC % 0.0 /100WBC Nucleated RBCs # 0 K/uL Sodium 134 L (136-148) mmol/L Potassium 4.4 (3.5-5.1) mmol/L Chloride 97 L (98-107) mmol/L Carbon Dioxide 30.6 (21.0-32.0) mmol/L BUN 15 (7.0-18.0) mg/dL Creatinine 1.2 (0.8-1.3) mg/dL Est Cr Clr Drug Dosing 78.56 mL/min Estimated GFR (MDRD) > 60.0 ml/min Glucose 111 H (74-106) mg/dL Calcium 8.3 L (8.5-10.1) mg/dL Ferritin 1318 H (26-388) ng/mL Total Bilirubin 0.9 (0.2-1.0) mg/dL AST 48 H (15-37) IU/L ALT 40 (14-63) IU/L Alkaline Phosphatase 58 (46-116) U/L C-Reactive Protein 3.40 H (0.00-0.90) mg/dL Total Protein 6.9 (6.4-8.2) g/dL Albumin 3.3 L (3.4-5.0) g/dL Globulin 3.6 (2.6-4.0) g/dL Albumin/Globulin Ratio 0.9 (0.9-1.6) Result Diagrams: 12/18/20 12:17 12/18/20 12:17 Sepsis Event Note - Evaluation Sepsis Screening Result: No Definite Risk - Focused Exam Vital Signs: Vital Signs Temp Pulse Resp BP Pulse Ox Pulse Ox 12/18/20 15:00 36.7 C 79 18 119/59 L 91 L 12/18/20 12:39 93 L 12/18/20 10:55 38.4 C H 90 16 115/68 89 L - Problem List (1) COVID SNOMED Code(s): 780931688 ICD Code: U07.1 - COVID-19 Status: Acute Current Visit: Yes (2) Hypoxia SNOMED Code(s): 825063748 ICD Code: R09.02 - HYPOXEMIA Status: Acute Current Visit: Yes Problem List Initiated/Reviewed/Updated: Yes Orders Last 24hrs: Active Orders 24 hr Category Date Time Status Admission Status [Patient Status] [ADT] Stat ADT 12/18/20 13:07 Active Cardiac Monitoring [RC] . DIRECTED Care 12/18/20 13:07 Active Oxygen Therapy [RC] PRN Care 12/18/20 16:41 Active Pulse Oximetry [RC] ASDIRECTED Care 12/18/20 11:14 Active RT Post Treatment Assessment [RC] Click to Edit Care 12/18/20 16:41 Active RT Pre-Treatment Assessment [RC] Click to Edit Care 12/18/20 16:41 Active VTE/DVT Education [RC] PER UNIT ROUTINE Care 12/18/20 16:41 Active Vital Signs [RC] Q4H Care 12/18/20 16:41 Active Regular Diet [DIET] Diet 12/18/20 Breakfast Active CBC WITH AUTO DIFF [HEME] AM Lab 12/19/20 05:11 Ordered CBC WITH AUTO DIFF [HEME] AM Lab 12/20/20 05:11 Ordered CBC WITH AUTO DIFF [HEME] AM Lab 12/21/20 05:11 Ordered CBC WITH AUTO DIFF [HEME] AM Lab 12/22/20 05:11 Ordered CBC WITH AUTO DIFF [HEME] AM Lab 12/23/20 05:11 Ordered COMPREHENSIVE METABOLIC PN,CMP [CHEM] AM Lab 12/19/20 05:11 Ordered COMPREHENSIVE METABOLIC PN,CMP [CHEM] AM Lab 12/20/20 05:11 Ordered COMPREHENSIVE METABOLIC PN,CMP [CHEM] AM Lab 12/21/20 05:11 Ordered COMPREHENSIVE METABOLIC PN,CMP [CHEM] AM Lab 12/22/20 05:11 Ordered COMPREHENSIVE METABOLIC PN,CMP [CHEM] AM Lab 12/23/20 05:11 Ordered Albuterol/Ipratropium [Combivent Respimat] Med 12/18/20 18:00 Active 1 gm INH QID PRN Benzonatate [Tessalon Perles] Med 12/18/20 17:00 Active 100 mg PO Q6H PRN Enoxaparin [Lovenox] Med 12/18/20 17:00 Active 40 mg SUBCUT Q24H Remdesivir 100 mg Med 12/19/20 13:00 Active Sodium Chloride 0.9% [Normal Saline AdvBag] 100 ml IV Q24H dexAMETHasone Med 12/19/20 13:00 Active 6 mg PO Q24H Resuscitation Status Routine Resus Stat 12/18/20 16:41 Ordered Medication Orders Albuterol/Ipratropium (Albuterol/Ipratropium 4 Gm Inhalation [place]) 1 gm INH QID PRN PRN Reason: wheezing Benzonatate (Benzonatate 100 Mg Cap) 100 mg PO Q6H PRN PRN Reason: Cough Dexamethasone (Dexamethasone 4 Mg Tab) 6 mg PO Q24H [facility] Enoxaparin Sodium (Enoxaparin 40 Mg/0.4 Ml Syringe) 40 mg SUBCUT Q24H [facility] Remdesivir 100 mg/ Sodium (Chloride) 100 mls @ 100 mls/hr IV Q24H [facility] Stop: 12/22/20 13:59 Assessment/Plan Comment:: 45 yo male admitted with COVID pneumonia with hypoxia Hypoxia: on 1 L NC COVID: treating with dexamethasone and remdesivir lovenox for DVT prophylaxis
[2020-12-18] MEDS ORDERED: Albuterol/Ipratropium 4 GM Inhalation Spray INH PRN (18:00)
[2020-12-19 07:38] LABS: BLOOD UREA NITROGEN,BUN 19 mg/dL (7.0-18.0); CARBON DIOXIDE,CO2 28.7 mmol/L (21.0-32.0); CHLORIDE,CL 96 mmol/L (98-107); GLUCOSE RANDOM 109 mg/dL (74-106); POTASSIUM,K 3.8 mmol/L (3.5-5.1); SODIUM,NA 133 mmol/L (136-148)
--- NOTE | 2020-12-19 12:31 | PCM.PN ---
- General Info Date of Service: 12/19/20 - Review of Systems Systems Review Comment:: shortness of breath has improved, - Patient Data Vitals - Most Recent: Last Vital Signs Temp 38.2 C H 12/19/20 07:00 Pulse 88 12/19/20 07:00 Resp 28 H 12/19/20 07:00 BP 113/61 12/19/20 07:00 Pulse Ox 91 L 12/19/20 07:00 Weight - Most Recent: 115.212 kg I&O - Last 24 Hours: Intake & Output 12/18/20 12/19/20 12/19/20 22:59 06:59 14:59 Intake Total 950 Output Total 675 Balance 275 Lab Results Last 24 Hours: Laboratory Results - last 24 hr 12/18/20 12/18/20 12/19/20 Range/Units 12:17 12:17 06:10 WBC 5.57 (4.0-11.0) K/uL RBC 4.95 (4.50-5.90) M/uL Hgb 15.3 (13.0-17.0) g/dL Hct 43.4 (38.0-50.0) % MCV 87.7 (80.0-98.0) fL MCH 30.9 (27.0-32.0) pg MCHC 35.3 (31.0-37.0) g/dL RDW Std Deviation 42.3 (28.0-62.0) fl RDW Coeff of Lena 13 (11.0-15.0) % Plt Count 169 (150-400) K/uL MPV 9.60 (7.40-12.00) fL Neut % (Auto) 68.0 (48.0-80.0) % Lymph % (Auto) 19.2 (16.0-40.0) % [place] % (Auto) 12.6 (0.0-15.0) % Eos % (Auto) 0.0 (0.0-7.0) % Baso % (Auto) 0.2 (0.0-1.5) % Neut # (Auto) 3.8 (1.4-5.7) K/uL Lymph # (Auto) 1.1 (0.6-2.4) K/uL [place] # (Auto) 0.7 (0.0-0.8) K/uL Eos # (Auto) 0.0 (0.0-0.7) K/uL Baso # (Auto) 0.0 (0.0-0.1) K/uL Nucleated RBC % 0.0 /100WBC Nucleated RBCs # 0 K/uL Sodium 134 L (136-148) mmol/L Potassium 4.4 (3.5-5.1) mmol/L Chloride 97 L (98-107) mmol/L Carbon Dioxide 30.6 (21.0-32.0) mmol/L BUN 15 (7.0-18.0) mg/dL Creatinine 1.2 (0.8-1.3) mg/dL Est Cr Clr Drug Dosing 78.56 mL/min Estimated GFR (MDRD) > 60.0 ml/min Glucose 111 H (74-106) mg/dL Calcium 8.3 L (8.5-10.1) mg/dL Ferritin 1318 H (26-388) ng/mL Total Bilirubin 0.9 (0.2-1.0) mg/dL AST 48 H (15-37) IU/L ALT 40 (14-63) IU/L Alkaline Phosphatase 58 (46-116) U/L C-Reactive Protein 3.40 H (0.00-0.90) mg/dL Total Protein 6.9 (6.4-8.2) g/dL Albumin 3.3 L (3.4-5.0) g/dL Globulin 3.6 (2.6-4.0) g/dL Albumin/Globulin Ratio 0.9 (0.9-1.6) 12/19/20 Range/Units 06:10 WBC (4.0-11.0) K/uL RBC (4.50-5.90) M/uL Hgb (13.0-17.0) g/dL Hct (38.0-50.0) % MCV (80.0-98.0) fL MCH (27.0-32.0) pg MCHC (31.0-37.0) g/dL RDW Std Deviation (28.0-62.0) fl RDW Coeff of Lena (11.0-15.0) % Plt Count (150-400) K/uL MPV (7.40-12.00) fL Neut % (Auto) (48.0-80.0) % Lymph % (Auto) (16.0-40.0) % [place] % (Auto) (0.0-15.0) % Eos % (Auto) (0.0-7.0) % Baso % (Auto) (0.0-1.5) % Neut # (Auto) (1.4-5.7) K/uL Lymph # (Auto) (0.6-2.4) K/uL [place] # (Auto) (0.0-0.8) K/uL Eos # (Auto) (0.0-0.7) K/uL Baso # (Auto) (0.0-0.1) K/uL Nucleated RBC % /100WBC Nucleated RBCs # K/uL Sodium 133 L (136-148) mmol/L Potassium 3.8 (3.5-5.1) mmol/L Chloride 96 L (98-107) mmol/L Carbon Dioxide 28.7 (21.0-32.0) mmol/L BUN 19 H (7.0-18.0) mg/dL Creatinine 1.1 (0.8-1.3) mg/dL Est Cr Clr Drug Dosing 85.70 mL/min Estimated GFR (MDRD) > 60.0 ml/min Glucose 109 H (74-106) mg/dL Calcium 7.7 L (8.5-10.1) mg/dL Ferritin (26-388) ng/mL Total Bilirubin 0.8 (0.2-1.0) mg/dL AST 46 H (15-37) IU/L ALT 36 (14-63) IU/L Alkaline Phosphatase 56 (46-116) U/L C-Reactive Protein (0.00-0.90) mg/dL Total Protein 6.6 (6.4-8.2) g/dL Albumin 3.0 L (3.4-5.0) g/dL Globulin 3.6 (2.6-4.0) g/dL Albumin/Globulin Ratio 0.8 L (0.9-1.6) Med Orders - Current: Current Medications Albuterol/Ipratropium (Albuterol/Ipratropium 4 Gm Inhalation [place]) 1 gm INH QID PRN PRN Reason: wheezing Benzonatate (Benzonatate 100 Mg Cap) 100 mg PO Q6H PRN PRN Reason: Cough Dexamethasone (Dexamethasone 4 Mg Tab) 6 mg PO Q24H [place] Enoxaparin Sodium (Enoxaparin 40 Mg/0.4 Ml Syringe) 40 mg SUBCUT Q24H [facility] Last Admin: 12/18/20 17:33 Dose: 40 mg Documented by: Remdesivir 100 mg/ Sodium (Chloride) 100 mls @ 100 mls/hr IV Q24H [place] Stop: 12/22/20 13:59 Discontinued Medications Acetaminophen (Acetaminophen 325 Mg Tab) 1,000 mg PO NOW ONE Stop: 12/18/20 11:18 Last Admin: 12/18/20 12:03 Dose: 975 mg Documented by: Acetaminophen (Acetaminophen 325 Mg Tab) 975 mg PO NOW ONE Stop: 12/18/20 12:05 Last Admin: 12/18/20 12:19 Dose: Not Given Documented by: Dexamethasone (Dexamethasone 4 Mg/Ml Sdv) 6 mg IVPUSH ONETIME ONE Stop: 12/18/20 12:38 Last Admin: 12/18/20 13:16 Dose: 6 mg Documented by: Remdesivir 200 mg/ Sodium (Chloride) 250 mls @ 250 mls/hr IV ONETIME ONE Stop: 12/18/20 13:59 Last Admin: 12/18/20 13:08 Dose: 250 mls/hr Documented by: - Exam General: Alert, Oriented Neck: Supple Lungs: Clear to Auscultation, Normal Respiratory Effort Cardiovascular: Regular Rhythm, Bradycardia GI/Abdominal Exam: Soft, Non-Tender, No Distention Extremities: Non-Tender, No Pedal Edema Skin: Warm, Dry, Intact Neurological: No New Focal Deficit - Patient Data Lab Results Last 24 hrs: Laboratory Results - last 24 hr 12/18/20 12/18/20 12/19/20 Range/Units 12:17 12:17 06:10 WBC 5.57 (4.0-11.0) K/uL RBC 4.95 (4.50-5.90) M/uL Hgb 15.3 (13.0-17.0) g/dL Hct 43.4 (38.0-50.0) % MCV 87.7 (80.0-98.0) fL MCH 30.9 (27.0-32.0) pg MCHC 35.3 (31.0-37.0) g/dL RDW Std Deviation 42.3 (28.0-62.0) fl RDW Coeff of Lena 13 (11.0-15.0) % Plt Count 169 (150-400) K/uL MPV 9.60 (7.40-12.00) fL Neut % (Auto) 68.0 (48.0-80.0) % Lymph % (Auto) 19.2 (16.0-40.0) % [place] % (Auto) 12.6 (0.0-15.0) % Eos % (Auto) 0.0 (0.0-7.0) % Baso % (Auto) 0.2 (0.0-1.5) % Neut # (Auto) 3.8 (1.4-5.7) K/uL Lymph # (Auto) 1.1 (0.6-2.4) K/uL [place] # (Auto) 0.7 (0.0-0.8) K/uL Eos # (Auto) 0.0 (0.0-0.7) K/uL Baso # (Auto) 0.0 (0.0-0.1) K/uL Nucleated RBC % 0.0 /100WBC Nucleated RBCs # 0 K/uL Sodium 134 L (136-148) mmol/L Potassium 4.4 (3.5-5.1) mmol/L Chloride 97 L (98-107) mmol/L Carbon Dioxide 30.6 (21.0-32.0) mmol/L BUN 15 (7.0-18.0) mg/dL Creatinine 1.2 (0.8-1.3) mg/dL Est Cr Clr Drug Dosing 78.56 mL/min Estimated GFR (MDRD) > 60.0 ml/min Glucose 111 H (74-106) mg/dL Calcium 8.3 L (8.5-10.1) mg/dL Ferritin 1318 H (26-388) ng/mL Total Bilirubin 0.9 (0.2-1.0) mg/dL AST 48 H (15-37) IU/L ALT 40 (14-63) IU/L Alkaline Phosphatase 58 (46-116) U/L C-Reactive Protein 3.40 H (0.00-0.90) mg/dL Total Protein 6.9 (6.4-8.2) g/dL Albumin 3.3 L (3.4-5.0) g/dL Globulin 3.6 (2.6-4.0) g/dL Albumin/Globulin Ratio 0.9 (0.9-1.6) 12/19/20 Range/Units 06:10 WBC (4.0-11.0) K/uL RBC (4.50-5.90) M/uL Hgb (13.0-17.0) g/dL Hct (38.0-50.0) % MCV (80.0-98.0) fL MCH (27.0-32.0) pg MCHC (31.0-37.0) g/dL RDW Std Deviation (28.0-62.0) fl RDW Coeff of Lena (11.0-15.0) % Plt Count (150-400) K/uL MPV (7.40-12.00) fL Neut % (Auto) (48.0-80.0) % Lymph % (Auto) (16.0-40.0) % [place] % (Auto) (0.0-15.0) % Eos % (Auto) (0.0-7.0) % Baso % (Auto) (0.0-1.5) % Neut # (Auto) (1.4-5.7) K/uL Lymph # (Auto) (0.6-2.4) K/uL [place] # (Auto) (0.0-0.8) K/uL Eos # (Auto) (0.0-0.7) K/uL Baso # (Auto) (0.0-0.1) K/uL Nucleated RBC % /100WBC Nucleated RBCs # K/uL Sodium 133 L (136-148) mmol/L Potassium 3.8 (3.5-5.1) mmol/L Chloride 96 L (98-107) mmol/L Carbon Dioxide 28.7 (21.0-32.0) mmol/L BUN 19 H (7.0-18.0) mg/dL Creatinine 1.1 (0.8-1.3) mg/dL Est Cr Clr Drug Dosing 85.70 mL/min Estimated GFR (MDRD) > 60.0 ml/min Glucose 109 H (74-106) mg/dL Calcium 7.7 L (8.5-10.1) mg/dL Ferritin (26-388) ng/mL Total Bilirubin 0.8 (0.2-1.0) mg/dL AST 46 H (15-37) IU/L ALT 36 (14-63) IU/L Alkaline Phosphatase 56 (46-116) U/L C-Reactive Protein (0.00-0.90) mg/dL Total Protein 6.6 (6.4-8.2) g/dL Albumin 3.0 L (3.4-5.0) g/dL Globulin 3.6 (2.6-4.0) g/dL Albumin/Globulin Ratio 0.8 L (0.9-1.6) Result Diagrams: 12/19/20 06:10 12/19/20 06:10 Sepsis Event Note - Evaluation Sepsis Screening Result: No Definite Risk - Focused Exam Vital Signs: Vital Signs Temp Pulse Resp BP Pulse Ox 12/19/20 07:00 38.2 C H 88 28 H 113/61 91 L 12/19/20 03:34 36.6 C 78 18 113/58 L 91 L - Problem List & Annotations (1) COVID SNOMED Code(s): 234610263 Code(s): U07.1 - COVID-19 Status: Acute Current Visit: Yes (2) Hypoxia SNOMED Code(s): 657018894 Code(s): R09.02 - HYPOXEMIA Status: Acute Current Visit: Yes - Problem List Review Problem List Initiated/Reviewed/Updated: Yes - My Orders Last 24 Hours: My Active Orders 12/18/20 16:41 Oxygen Therapy [RC] PRN RT Post Treatment Assessment [RC] Click to Edit RT Pre-Treatment Assessment [RC] Click to Edit VTE/DVT Education [RC] PER UNIT ROUTINE Vital Signs [RC] Q4H Resuscitation Status Routine 12/18/20 17:00 Benzonatate [Tessalon Perles] 100 mg PO Q6H PRN Enoxaparin [Lovenox] 40 mg SUBCUT Q24H 12/18/20 18:00 Albuterol/Ipratropium [Combivent Respimat] 1 gm INH QID PRN 12/19/20 13:00 Remdesivir 100 mg Sodium Chloride 0.9% [Normal Saline AdvBag] 100 ml IV Q24H dexAMETHasone 6 mg PO Q24H 12/20/20 05:11 CBC WITH AUTO DIFF [HEME] AM COMPREHENSIVE METABOLIC PN,CMP [CHEM] AM 12/21/20 05:11 CBC WITH AUTO DIFF [HEME] AM COMPREHENSIVE METABOLIC PN,CMP [CHEM] AM 12/22/20 05:11 CBC WITH AUTO DIFF [HEME] AM COMPREHENSIVE METABOLIC PN,CMP [CHEM] AM 12/23/20 05:11 CBC WITH AUTO DIFF [HEME] AM COMPREHENSIVE METABOLIC PN,CMP [CHEM] AM - Plan Plan:: 45 yo male admitted with COVID pneumonia with hypoxia Hypoxia: on 1 L NC COVID: continue dexamethasone and remdesivir lovenox for DVT prophylaxis
[2020-12-19] MEDS: REMDESIVIR 100 MG in Sodium Chloride 0.9% 100 ML IV SCH (13:18)
[2020-12-19] MEDS: Dexamethasone 4 MG Tab PO SCH (13:22)
[2020-12-19] MEDS: Acetaminophen 325 MG Tab PO PRN (14:15)
[2020-12-19] MEDS: Enoxaparin 40 MG/0.4 ML Syringe SUBCUT SCH (17:18)
[2020-12-20] MEDS: Acetaminophen 325 MG Tab PO PRN (01:57)
[2020-12-20 06:50] LABS: BLOOD UREA NITROGEN,BUN 18 mg/dL (7.0-18.0); CARBON DIOXIDE,CO2 30.6 mmol/L (21.0-32.0); CHLORIDE,CL 99 mmol/L (98-107); GLUCOSE RANDOM 120 mg/dL (74-106); POTASSIUM,K 4.2 mmol/L (3.5-5.1); SODIUM,NA 137 mmol/L (136-148)
--- NOTE | 2020-12-20 11:16 | PCM.DCSUM1 ---
Discharge Summary - Discharge Data Discharge Date: 12/20/20 Discharge Disposition: Home, Self-Care 01 Condition: Stable - Referral to Home Health Primary Care Physician: PCP None - Discharge Diagnosis/Problem(s) (1) COVID SNOMED Code(s): 590295625 ICD Code: U07.1 - COVID-19 Status: Acute Current Visit: Yes (2) Hypoxia SNOMED Code(s): 499141737 ICD Code: R09.02 - HYPOXEMIA Status: Acute Current Visit: Yes - Patient Summary/Data Hospital Course: 45 yo male who presents with one week of shortness of breath, lightheadedness, cough and fevers. He is positive for COVID. He is requiring 2 L NC to keep sats above 90%. CXR reports bilateral infiltrates. He was treated with Remdesivir and dexamethasone. Today he is requesting discharge home. He reports his is now more ill than him and he needs to be at home with his children. He does desat with ambulation so he was discharged home with home oxygen. He is to follow up with PCP. - Patient Instructions Diet: Regular Diet as Tolerated Notify Provider of: Fever, Increased Pain, Nausea and/or Vomiting - Discharge Plan Prescriptions/Med Rec: dexAMETHasone [Dexamethasone] 4 mg PO DAILY #4 tablet Home Medications: Home Meds dexAMETHasone [Dexamethasone] 4 mg PO DAILY #4 tablet 12/20/20 [Rx] Oxygen Therapy Mode: Nasal Cannula Oxygen Flow Rate (L/min): 2 (with exertion) Patient Handouts: Hypoxia, COVID-19 Frequently Asked Questions, COVID-19, COVID-19 Vaccine Information, COVID-19: How to Protect Yourself and Others - CDC, COVID-19: Quarantine vs. Isolation - CDC (01/26/2020), Dexamethasone tablets Referrals: Patito Maldonado PA [Physician Software Design Analyst] - - Discharge Summary/Plan Comment DC Time >30 min.: No Total # of Minutes for Discharge Time: 15 - Patient Data Vitals - Most Recent: Last Vital Signs Temp 36.2 C 12/20/20 08:20 Pulse 64 12/20/20 08:20 Resp 18 12/20/20 08:20 BP 112/65 12/20/20 08:20 Pulse Ox 91 L 12/20/20 05:00 Weight - Most Recent: 115.212 kg I&O - Last 24 hours: Intake & Output 12/19/20 12/20/20 12/20/20 22:59 06:59 14:59 Intake Total 1030 720 Balance 1030 720 Lab Results - Last 24 hrs: Laboratory Results - last 24 hr 12/20/20 12/20/20 Range/Units 05:50 05:50 WBC 5.16 (4.0-11.0) K/uL RBC 4.98 (4.50-5.90) M/uL Hgb 15.5 (13.0-17.0) g/dL Hct 43.7 (38.0-50.0) % MCV 87.8 (80.0-98.0) fL MCH 31.1 (27.0-32.0) pg MCHC 35.5 (31.0-37.0) g/dL RDW Std Deviation 41.9 (28.0-62.0) fl RDW Coeff of Lena 13 (11.0-15.0) % Plt Count 199 (150-400) K/uL MPV 9.70 (7.40-12.00) fL Neut % (Auto) 68.4 (48.0-80.0) % Lymph % (Auto) 16.9 (16.0-40.0) % [place] % (Auto) 14.7 (0.0-15.0) % Eos % (Auto) 0.0 (0.0-7.0) % Baso % (Auto) 0.0 (0.0-1.5) % Neut # (Auto) 3.5 (1.4-5.7) K/uL Lymph # (Auto) 0.9 (0.6-2.4) K/uL [place] # (Auto) 0.8 (0.0-0.8) K/uL Eos # (Auto) 0.0 (0.0-0.7) K/uL Baso # (Auto) 0.0 (0.0-0.1) K/uL Nucleated RBC % 0.0 /100WBC Nucleated RBCs # 0 K/uL Sodium 137 (136-148) mmol/L Potassium 4.2 (3.5-5.1) mmol/L Chloride 99 (98-107) mmol/L Carbon Dioxide 30.6 (21.0-32.0) mmol/L BUN 18 (7.0-18.0) mg/dL Creatinine 1.0 (0.8-1.3) mg/dL Est Cr Clr Drug Dosing 94.27 mL/min Estimated GFR (MDRD) > 60.0 ml/min Glucose 120 H (74-106) mg/dL Calcium 7.8 L (8.5-10.1) mg/dL Total Bilirubin 0.8 (0.2-1.0) mg/dL AST 46 H (15-37) IU/L ALT 37 (14-63) IU/L Alkaline Phosphatase 56 (46-116) U/L Total Protein 6.6 (6.4-8.2) g/dL Albumin 2.9 L (3.4-5.0) g/dL Globulin 3.7 (2.6-4.0) g/dL Albumin/Globulin Ratio 0.8 L (0.9-1.6) Med Orders - Current: Current Medications Acetaminophen (Acetaminophen 325 Mg Tab) 650 mg PO Q6H PRN PRN Reason: Pain Last Admin: 12/20/20 01:57 Dose: 650 mg Documented by: Albuterol/Ipratropium (Albuterol/Ipratropium 4 Gm Inhalation [place]) 1 gm INH QID PRN PRN Reason: wheezing Benzonatate (Benzonatate 100 Mg Cap) 100 mg PO Q6H PRN PRN Reason: Cough Dexamethasone (Dexamethasone 4 Mg Tab) 6 mg PO Q24H [facility] Last Admin: 12/19/20 13:22 Dose: 6 mg Documented by: Enoxaparin Sodium (Enoxaparin 40 Mg/0.4 Ml Syringe) 40 mg SUBCUT Q24H [facility] Last Admin: 12/19/20 17:18 Dose: 40 mg Documented by: Remdesivir 100 mg/ Sodium (Chloride) 100 mls @ 100 mls/hr IV Q24H [facility] Stop: 12/22/20 13:59 Last Admin: 12/19/20 13:18 Dose: 100 mls/hr Documented by: Discontinued Medications Acetaminophen (Acetaminophen 325 Mg Tab) 1,000 mg PO NOW ONE Stop: 12/18/20 11:18 Last Admin: 12/18/20 12:03 Dose: 975 mg Documented by: Acetaminophen (Acetaminophen 325 Mg Tab) 975 mg PO NOW ONE Stop: 12/18/20 12:05 Last Admin: 12/18/20 12:19 Dose: Not Given Documented by: Dexamethasone (Dexamethasone 4 Mg/Ml Sdv) 6 mg IVPUSH ONETIME ONE Stop: 12/18/20 12:38 Last Admin: 12/18/20 13:16 Dose: 6 mg Documented by: Remdesivir 200 mg/ Sodium (Chloride) 250 mls @ 250 mls/hr IV ONETIME ONE Stop: 12/18/20 13:59 Last Admin: 12/18/20 13:08 Dose: 250 mls/hr Documented by:
[2020-12-20] MEDS: Dexamethasone 4 MG Tab PO SCH (12:50)
[2020-12-20] MEDS: REMDESIVIR 100 MG in Sodium Chloride 0.9% 100 ML IV SCH (12:51)
[2020-12-20 13:53] VITALS: BP 118/65; PULSE 70
== END 2020-12-20 15:20 | disposition home or self-care (01) | DRG 177 ==
LOC: MW.ED 10:48 → MW.MS 13:07
PROVIDERS: ADMIT Internal Medicine; ATTEND Internal Medicine
PROC: XW033E5 Introduction of Remdesivir Anti-infective into Peripheral Vein, Percutaneous Approach, New Technology Group 5 (ICD-10-PCS; principal; 2020-12-18)
PROC: 3E0DX3Z Introduction of Anti-inflammatory into Mouth and Pharynx, External Approach (ICD-10-PCS; 2020-12-18)
DX: U07.1 COVID-19 (principal); J12.82 Pneumonia due to coronavirus disease 2019; K90.0 Celiac disease; K59.09 Other constipation; K21.9 Gastro-esophageal reflux disease without esophagitis; E66.9 Obesity, unspecified; Z79.899 Other long term (current) drug therapy; Z91.018 Allergy to other foods; Z98.52 Vasectomy status; Z68.37 Body mass index [BMI] 37.0-37.9, adult
CPT/HCPCS: 36415; 71045; 71045-26; 80053; 82728; 85025; 86140; 93005; 99285-25; A9270-GY; J1100; J1650; J7050; J8540

== ENCOUNTER 2020-12-23 10:30 | Emergency (ER) | payer OTHER ==
[2020-12-23] MEDS ORDERED: Sodium Chloride 0.9% 1,000 ML IV ONE (12:43)
--- NOTE | 2020-12-23 13:05 | EDM.PDOC ---
ED HPI GENERAL MEDICAL PROBLEM - General Chief Complaint: Respiratory Problem Stated Complaint: COVID Positive, not feeling well Time Seen by Provider: 12/23/20 12:09 Source of Information: Reports: Patient History Limitations: Reports: No Limitations - History of Present Illness INITIAL COMMENTS - FREE TEXT/NARRATIVE: HISTORY AND PHYSICAL: History of present illness: The patient is a 45-year-old male with a history of COVID-19 that required hospitalization for oxygen and her dyspnea was discharged from the hospital 2 days ago after stating he needed to go home because his was ill and did not receive the completion of his remdesivir. Today the patient presents to the emergency department for complaints of headache, and generalized body aches. The patient is not on his home O2 and his oxygen saturation on room air is 95 to 97%. The patient dates that he is not short of breath. The patient just wants something for his headache and body aches. Patient denies any fever, chills, headache, change in vision, syncope or near syncope. Denies any shortness of breath or cough. Denies any abdominal pain, nausea, vomiting, diarrhea, constipation or dysuria. Has not noted any blood in urine or stool. Patient has been eating and drinking appropriately. Review of systems: As per history of present illness and below otherwise all systems reviewed and negative. Past medical history: As per history of present illness and as reviewed below otherwise noncontributory. Surgical history: As per history of present illness and as reviewed below otherwise noncontr ibutory. Social history: See social history for further information Family history: As per history of present illness and as reviewed below otherwise noncontributory. Physical exam: General: Well developed and well nourished. Alert and orientated x 3. Nontoxic in appearance and in no acute distress. Vital signs are stable and have been reviewed by me. Nursing notes were reviewed. HEENT: Atraumatic, normocephalic, pupils equal and reactive bilaterally, negative for conjunctival pallor or scleral icterus, mucous membranes moist, TMs normal bilaterally, throat clear, neck supple, nontender, trachea midline. No drooling or trismus noted. No meningeal signs. No hot potato voice noted. Lungs: Clear to auscultation bilaterally. No wheezes, rales, or rhonchi. Chest nontender. Normal work of breathing, no accessory muscles used. Heart: S1S2, regular rate and rhythm without overt murmur, gallops, or rubs. No JVD. No peripheral edema Abdomen: Soft, nondistended, nontender. Normoactive bowel sounds. Negative for masses or costovertebral tenderness. Skin: Intact, warm, dry. No lesions or rashes noted. Hematologic: No petechiae or purpra. Mucosa appropriate color and normal nail bed color and refill. Extremities: Atraumatic, moves all extremities per self without difficulty or deficits, negative for cords or calf pain. Neurovascular unremarkable. Neuro: Awake, alert, oriented. Cranial nerves II through XII unremarkable. Cerebellum unremarkable. Motor and sensory unremarkable throughout. Exam nonfocal. Psychiatric: Mood and affect are appropriate. Normal thought process. Answering questions appropriately. Notes: *This patient was seen and evaluated during the 2019 SARS-CoV-2 novel coronavirus pandemic period. Community viral transmission is ongoing at time of this encounter and the emergency department is operating under pandemic response procedures. As stated above the patient is a 45-year-old male who presents to the emergency department after discharge 2 days ago from the hospital with COVID-19 prior to receiving a complete GM of remdesivir is requesting something for his headache and generalized body aches. The patient is on dexamethasone and as such cannot have Motrin or Toradol due to the increased risk of GI bleed. I have explained this to the patient. As the patient is supposed to be on home O2 I do not feel comfortable giving the patient a narcotic at this time. I have explained to the patient that my only option is to give him Tylenol. The patient states that he has Tylenol at home and will just go home and get his Tylenol. I educated the p atient on relaxation techniques that he could try at home and he is agreeable to try these. The patient will be discharged. I have talked with the patient about today's findings, in addition to providing specific details for plan of care. Reassessment at the time of disposition demonstrates that the patient is in no acute distress. The patient is stable for discharge, counseling was provided and we discussed in great detail signs and symptoms that would prompt them to return to the Emergency Department. Medication, follow up and supportive care measures were reviewed and discussed. Voices understanding and is agreeable to plan of care. Denies any further questions or concerns at this time. Impression: Headache, COVID-19 Plan: 1. You were evaluated today on an emergent basis. Your complaints of generalized pain and headache was evaluated with an exam. You were discharged from the hospital 2 days ago with COVID-19 after stating that you needed to go home because your was ill. You are supposed to receive another dose of remdesivir but she did not. You were sent home on home O2. Today you presented to the emergency room without oxygen and your O2 saturation is 97% on room air. As you are still on dexamethasone a steroid I cannot give you Toradol or any NSAIDs, as this could cause a GI bleed. I do not recommend narcotics as you are just getting off of your oxygen. I recommend taking Tylenol 1000 mg do not take over 4000 mg a day. 2. You can alternate Tylenol and ibuprofen as needed for pain and fever management. 3. We encourage you to follow up with your primary care provider and/or recommended specialist in the next few days for re-evaluation and further care/management. 4. If your symptoms should worsen, new symptoms develop or any of the signs and symptoms we discussed should arise please return to the emergency room or call 911 (if needed). Definitive disposition and diagnosis as appropriate pending reevaluation and review of above. general Pain Score (Numeric/FACES): 7 - Related Data Allergies Allergy/AdvReac Type Severity Reaction Status Date / Time gluten Allergy Other Verified 12/23/20 12:08 Home Meds: Home Meds dexAMETHasone [Dexamethasone] 4 mg PO DAILY #4 tablet 12/20/20 [Rx] Past Medical History HEENT History: Reports: None Cardiovascular History: Reports: None Other Cardiovascular History: had chest pain 4+ years ago, had testing done, no pathology found Respiratory History: Reports: None Gastrointestinal History: Reports: Celiac Disease, Chronic Constipation, GERD, Irritable Bowel Syndrome Other Gastrointestinal History: Celiac disease Genitourinary History: Reports: None Musculoskeletal History: Reports: Fracture Other Musculoskeletal History: hx of fx right. elbow, has decreased movement in it Neurological History: Reports: None Psychiatric History: Reports: Bipolar Other Psychiatric History: does not take any meds Endocrine/Metabolic History: Reports: Obesity/BMI 30+, Other (See Below) Other Endocrine/Metabolic History: celiac disease Hematologic History: Reports: None Immunologic History: Reports: None Oncologic (Cancer) History: Reports: None Dermatologic History: Reports: Eczema, Psoriasis - Infectious Disease History Infectious Disease History: Reports: Chicken Pox - Past Surgical History Head Surgeries/Procedures: Reports: None HEENT Surgical History: Reports: None Cardiovascular Surgical History: Reports: None GI Surgical History: Reports: Colonoscopy, EGD, Hernia, Abdominal Male Surgical History: Reports: Vasectomy Endocrine Surgical History: Reports: None Neurological Surgical History: Reports: None Musculoskeletal Surgical History: Reports: None Oncologic Surgical History: Reports: None Dermatological Surgical History: Reports: None Social & Family History - Family History Family Medical History: No Pertinent Family History Respiratory: Reports: Other (See Below) Other Respiratory Family Hisory: pneumonia family - Caffeine Use Caffeine Use: Reports: Coffee, Energy Drinks Caffeine Use Comment: occ ED ROS GENERAL - Review of Systems Review Of Systems: Comprehensive ROS is negative, except as noted in HPI. ED EXAM, GENERAL - Physical Exam Exam: See Below (See dictation) Course - Vital Signs Last Recorded V/S: Last Vital Signs Temp 97.6 F 12/23/20 12:08 Pulse 66 12/23/20 12:08 Resp 18 12/23/20 12:08 BP 129/77 12/23/20 12:08 Pulse Ox 94 L 12/23/20 12:08 - Orders/Labs/Meds Meds: Medications Discontinued Medications Generic Name Dose Route Start Last Admin Trade Name Freq PRN Reason Stop Dose Admin Sodium Chloride 1,000 mls @ 999 mls/hr 12/23/20 12:43 Normal Saline IV 12/23/20 13:43 .BOLUS ONE Departure - Departure Time of Disposition: 13:03 Disposition: Home, Self-Care 01 Condition: Good Clinical Impression: COVID Headache Qualifiers: Headache type: unspecified Headache chronicity pattern: unspecified pattern - Discharge Information *PRESCRIPTION DRUG MONITORING PROGRAM REVIEWED*: Not Applicable *COPY OF PRESCRIPTION DRUG MONITORING REPORT IN PATIENT DAVE: Not Applicable Instructions: COVID-19: What to Do If You Are Sick- [facility] (04/25/2020) Referrals: Patito Maldonado PA [Primary Care Provider] - Forms: ED Department Discharge Additional Instructions: The following information is given to patients seen in the emergency department who are being discharged to home. This information is to outline your options for follow-up care. We provide all patients seen in our emergency department with a follow-up referral. The need for follow-up, as well as the timing and circumstances, are variable depending upon the specifics of your emergency department visit. If you don't have a primary care physician on staff, we will provide you with a referral. We always advise you to contact your personal physician following an emergency department visit to inform them of the circumstance of the visit and for follow-up with them and/or the need for any referrals to a consulting specialist. The emergency department will also refer you to a specialist when appropriate. This referral assures that you have the opportunity for follow-up care with a specialist. All of these measure are taken in an effort to provide you with optimal care, which includes your follow-up. Under all circumstances we always encourage you to contact your private physician who remains a resource for coordinating your care. When calling for follow-up care, please make the office aware that this follow-up is from your recent emergency room visit. If for any reason you are refused follow-up, please contact the [facility] Emergency Department at and asked to speak to the emergency department charge nurse. [facility] [address] [place] [id number] [place] [address] Plan: 1. You were evaluated today on an emergent basis. Your complaints of generalized pain and headache was evaluated with an exam. You were discharged from the hospital 2 days ago with COVID-19 after stating that you needed to go home because your was ill. You are supposed to receive another dose of remdesivir but she did not. You were sent home on home O2. Today you presented to the emergency room without oxygen and your O2 saturation is 97% on room air. As you are still on dexamethasone a steroid I cannot give you Toradol or any NSAIDs, as this could cause a GI bleed. I do not recommend narcotics as you are just getting off of your oxygen. I recommend taking Tylenol 1000 mg do not take over 4000 mg a day. 2. You can alternate Tylenol and ibuprofen as needed for pain and fever management. 3. We encourage you to follow up with your primary care provider and/or recommended specialist in the next few days for re-evaluation and further care/management. 4. If your symptoms should worsen, new symptoms develop or any of the signs and symptoms we discussed should arise please return to the emergency room or call 911 (if needed). Sepsis Event Note (ED) - Evaluation Sepsis Screening Result: No Definite Risk - Focused Exam Vital Signs: Vital Signs Temp Pulse Resp BP Pulse Ox 12/23/20 12:08 97.6 F 66 18 129/77 94 L
--- NOTE | 2020-12-23 13:09 | CR ---
Indication: Shortness of breath Technique: Portable chest Comparison: Chest x-ray 12/18/20 Findings: Normal cardiac mediastinal silhouette. Slight worsening of diffuse bilateral infiltrates. No effusion or pneumothorax Dictated by Liliam Christiansen MD @ 12/23/2020 1:07:22 PM (Electronically Signed)
[2020-12-23 15:52] VITALS: BP 137/64; PULSE 67
== END 2020-12-23 13:05 | disposition home or self-care (01) ==
LOC: MW.ED 10:30
DX: U07.1 COVID-19 (principal); E66.9 Obesity, unspecified; Z68.35 Body mass index [BMI] 35.0-35.9, adult; Z91.018 Allergy to other foods
CPT/HCPCS: 71045; 71045-26; 99284-25